=== PATIENT | female | born 1995 | race Caucasian/White ===

== ENCOUNTER 2016-10-24 23:41 | Emergency (ER) | payer OTHER ==
[~2016-10-24] VITALS: Ht 152.4 cm; Wt 65.7 kg
[~2016-10-24 23:41] MED LIST: FERR325T5; FOLI5CAP; LEVE500T26 PO; MEDR150I IM; Vit B; Vit B12
[2016-10-24 23:44] VITALS: TEMP 36.8; Ht 152.4 cm; Wt 65.7 kg
[2016-10-24] MEDS ORDERED: LORAZEPAM 2 MG/ML 1 ML VIAL ONE (23:57)
[2016-10-24] MEDS ORDERED: LORAZEPAM 2 MG/ML 1 ML VIAL IV STA (23:57)
[2016-10-25 00:01] VITALS: O2SAT 94
[2016-10-25] MEDS ORDERED: CYAN10005 PO (00:11)
[2016-10-25] MEDS ORDERED: MEDR1INJ5 IM (00:13)
[2016-10-25] MEDS ORDERED: LAMO150T32 PO (00:13)
[2016-10-25] MEDS ORDERED: SODIUM CHLORIDE 0.9% 1000ML 1,000 ML IV STA (00:17)
[2016-10-25 00:40] LABS: BASO % 0.3 %; BASO ABS # 0.03 K/uL (0-0.2); COMPLETE YES; EOS % 0.5 %; HEMATOCRIT 42.4 % (37-47); IG% 0.2 %; LYMPH % 10.1 %; LYMPH ABS # 1.16 K/uL (1.2-3.4); MEAN CORPUSCULAR HEMOGLOBIN 30.6 pg (25-34); MEAN CORPUSCULAR HGB CONC 33.3 g/dl (32-36); MEAN PLATELET VOLUME 11.2 fL (7.4-10.4); NEUT % 82.9 %; PLATELET COUNT 243 K/uL (130-400); RED BLOOD COUNT 4.61 M/uL (4.2-5.4); WHITE BLOOD COUNT 11.46 K/uL (4.8-10.8)
[2016-10-25 00:53] LABS: INR 1.1 (0.9-1.1); PARTIAL THROMBOPLASTIN RATIO 1.1
[2016-10-25 00:58] LABS: BUN/CREATININE RATIO 17.3 (10-20); CALCIUM 8.5 mg/dl (8.5-10.1); CREATININE 0.94 mg/dl (0.60-1.20); MAGNESIUM 2.2 mg/dl (1.8-2.4); POTASSIUM 3.3 mmol/L (3.5-5.1)
[2016-10-25 01:09] LABS: PHOSPHORUS 4.1 mg/dl (2.5-4.9); THYROID STIMULATING HORMONE 6.53 uIu/ml (0.300-4.500)
[2016-10-25 01:10] LABS: URINE APPEARANCE CLEAR (CLEAR); URINE BILIRUBIN NEG (NEG); URINE COLOR YELLOW; URINE EPITHELIAL CELL AUTO >30 /lpf (0-5); URINE NITRITE NEG (NEG); URINE PH 6.5 (4.5-7.5); URINE SPECIFIC GRAVITY 1.022 (1.000-1.030); UROBILINOGEN NEG (NEG); ZZUR CULT IF INDIC CLEAN CATCH YES
[2016-10-25] MEDS ORDERED: POTASSIUM CHLORIDE 10 MEQ TABCR PO STA (01:10)
[2016-10-25 01:13] LABS: MANUAL MICROSCOPIC REQUIRED? NO; REVIEW REQ? YES
[2016-10-25 01:33] LABS: PREG INTERNAL NEGATIVE QC NEG CLEAR BACKGROUND; PREG INTERNAL POSITIVE QC POS CONTROL LINE
--- NOTE | 2016-10-25 01:41 | EMERGENCY ROOM VISIT NOTE ---
History First contact with patient: 23:49 Chief Complaint: SEIZURE Stated Complaint: SEIZURE Nursing Triage Summary: refer to triage note History of Present Illness The patient is a 21 year old female who presents to the Emergency Room with complaints of possible seizure tonight. Patient has CP and a history of seizures. Patient has some contraction on her right side but is able to ambulate and closed herself. She is on Lamictal. Patient accidentally skipped her dose of Lamictal today. Last seizure was last year. Mother states that she seizes her right arm shakes. Occasionally she has a grand mal seizure. Patient denies chest pain, dyspnea, fever, chills, cough, congestion, abdominal pain or any other medical complaints. Mother states she tried diazepam with no success and called EMS. Mother states her seizure lasted for 50 minutes. Review of Systems See HPI for pertinent positives & negatives. A total of 10 systems reviewed and were otherwise negative. Past Medical/Surgical History Medical Problems: (1) Cerebral palsy (2) EPILEPSY UNSPEC W/O MENTION INTRACTABLE EPILEPSY (3) Seizure disorder Social History Smoking Status: Never Smoker Alcohol Use: none Drug Use: none Marital Status: single Housing Status: lives with family Occupation Status: disabled Current/Historical Medications Scheduled Cyanocobalamin (Vitamin B-12), 1,000 MCG PO DAILY Folic Acid (Folic Acid), 1 MG QD Lamotrigine (Lamictal), 150 MG PO BID Medroxyprogesterone Acetate (C (Medroxyprogesterone Aceta), 150 MG IM MONTHLY Physical Exam Vital Signs Date Time Temp Pulse Resp B/P (MAP) Pulse Ox O2 Delivery O2 Flow Rate FiO2 10/25/16 01:48 119 20 115/77 96 10/25/16 01:12 111 18 113/79 96 Room Air 10/25/16 00:01 94 Room Air 10/25/16 00:01 94 Room Air 10/24/16 23:49 136 10/24/16 23:44 36.8 135 27 142/93 94 Room Air Physical Exam VITALS: Vitals are noted on the nurse's note and reviewed by myself. Vital signs tachycardic GENERAL: Pleasant female anxious-appearing, in no acute distress, nondiaphoretic , well-developed well-nourished. SKIN: The skin was without rashes, erythema, edema, or bruising. There is no tenting of the skin. Capillary reflex less than 2 seconds. HEAD: Normocephalic atraumatic. EARS: External auditory canals clear, tympanic membranes pearly chávez without erythema or effusion bilaterally. EYES: Pupils equal round and reactive to light and accommodation. Conjunctivae without injection, sclerae without icterus. Extraocular movements intact. NOSE: Patent, turbinates without inflammation or discharge. MOUTH: Mucous membranes moist. Pharynx without erythema or exudate. Uvula midline. Airway patent. Tongue does not deviate. NECK: Supple without nuchal rigidity. No lymphadenopathy. No thyromegaly. Cervical spine is nontender. No JVD. HEART: Regular rate and rhythm without murmurs gallops or rubs. LUNGS: Clear to auscultation bilaterally without wheezes, rales or rhonchi. No dullness to percussion. No retractions or accessory muscle use. ABDOMEN: Positive bowel sounds x 4. Normal tympanic percussion. Soft, nontender, without masses or organomegaly. Henriquez sign negative. No guarding or rebound tenderness. MUSCULOSKELETAL: No muscle atrophy, erythema, or edema noted. Right arm contracted NEURO: Patient was alert and oriented to person place and time. Normal sensation to light and sharp touch. No focal neurological deficits. Medical Decision & Procedures Laboratory Results 10/25/16 00:30 Red Blood Count 4.61, Mean Corpuscular Volume 92.0, Mean Corpuscular Hemoglobin 30.6, Mean Corpuscular Hemoglobin Concent 33.3, Mean Platelet Volume 11.2, Neutrophils (%) (Auto) 82.9, Lymphocytes (%) (Auto) 10.1, Monocytes (%) (Auto) 6.0, Eosinophils (%) (Auto) 0.5, Basophils (%) (Auto) 0.3, Neutrophils # (Auto) 9.50, Lymphocytes # (Auto) 1.16, Monocytes # (Auto) 0.69, Eosinophils # (Auto) 0.06, Basophils # (Auto) 0.03 10/25/16 00:30 Test 10/25/16 00:30 10/25/16 00:40 White Blood Count 11.46 K/uL (4.8-10.8) Red Blood Count 4.61 M/uL (4.2-5.4) Hemoglobin 14.1 g/dL (12.0-16.0) Hematocrit 42.4 % (37-47) Mean Corpuscular Volume 92.0 fL (80-100) Mean Corpuscular Hemoglobin 30.6 pg (25-34) Mean Corpuscular Hemoglobin Concent 33.3 g/dl (32-36) Platelet Count 243 K/uL (130-400) Mean Platelet Volume 11.2 fL (7.4-10.4) Neutrophils (%) (Auto) 82.9 % Lymphocytes (%) (Auto) 10.1 % Monocytes (%) (Auto) 6.0 % Eosinophils (%) (Auto) 0.5 % Basophils (%) (Auto) 0.3 % Neutrophils # (Auto) 9.50 K/uL (1.4-6.5) Lymphocytes # (Auto) 1.16 K/uL (1.2-3.4) Monocytes # (Auto) 0.69 K/uL (0.11-0.59) Eosinophils # (Auto) 0.06 K/uL (0-0.5) Basophils # (Auto) 0.03 K/uL (0-0.2) RDW Standard Deviation 42.8 fL (36.4-46.3) RDW Coefficient of Variation 12.7 % (11.5-14.5) Immature Granulocyte % (Auto) 0.2 % Immature Granulocyte # (Auto) 0.02 K/uL (0.00-0.02) Prothrombin Time 12.0 SECONDS (9.0-12.0) Prothromb Time International Ratio 1.1 (0.9-1.1) Activated Partial Thromboplast Time 28.0 SECONDS (21.0-31.0) Partial Thromboplastin Ratio 1.1 Anion Gap 7.0 mmol/L (3-11) Est Creatinine Clear Calc Drug Dose 78.7 ml/min Estimated GFR () 99.1 Estimated GFR (Non- 85.5 BUN/Creatinine Ratio 17.3 (10-20) Calcium Level 8.5 mg/dl (8.5-10.1) Phosphorus Level 4.1 mg/dl (2.5-4.9) Magnesium Level 2.2 mg/dl (1.8-2.4) Thyroid Stimulating Hormone (TSH) 6.530 uIu/ml (0.300-4.500) Human Chorionic Gonadotropin, Qual NEG (NEG) Urine Color YELLOW Urine Appearance CLEAR (CLEAR) Urine pH 6.5 (4.5-7.5) Urine Specific [place] 1.022 (1.000-1.030) Urine Protein 2+ (NEG) Urine Glucose (UA) NEG (NEG) Urine Ketones NEG (NEG) Urine Occult Blood 2+ (NEG) Urine Nitrite NEG (NEG) Urine Bilirubin NEG (NEG) Urine Urobilinogen NEG (NEG) Urine Leukocyte Esterase NEG (NEG) Urine WBC (Auto) 5-10 /hpf (0-5) Urine RBC (Auto) 0-4 /hpf (0-4) Urine Hyaline Casts (Auto) 1-5 /lpf (0-5) Urine Epithelial Cells (Auto) >30 /lpf (0-5) Urine Bacteria (Auto) NEG (NEG) Urine Renal Epithelial Cells /lpf (0-5) Urine Yeast (Auto) PRESENT (NONE PRSENT) Medications Administered Medications (Trade) Dose Ordered Sig/Justus Route Start Time Stop Time Status Last Admin Dose Admin Lorazepam (Ativan Inj) 1 mg NOW STAT IV 10/24/16 23:57 10/24/16 23:59 DC 10/25/16 00:04 1 MG Sodium Chloride 1,000 ml @ 999 mls/hr Q1H1M STAT IV 10/25/16 00:17 10/25/16 01:17 DC 10/25/16 00:40 999 MLS/HR Potassium Chloride (Klor-Con M10) 20 meq NOW STAT PO 10/25/16 01:10 10/25/16 01:11 DC 10/25/16 01:21 20 MEQ Lamotrigine (Lamictal Tab) 100 mg NOW STAT PO 10/25/16 01:24 10/25/16 01:25 DC 10/25/16 01:48 100 MG ED Course Prior records/ancillary studies reviewed. Patient placed in seizure precautions immediately upon arrival. Nursing notes reviewed. Additional history obtained from family The patient's history was concerning for a possible seizure. Differential diagnosis: Etiologies such as infection, hypoglycemia, electrolyte abnormalities, cardiac sources, intracerebral event, trauma, toxicologic, neurologic, as well as others were entertained. Physical examination: As above. No signs of trauma. ER treatment provided: Ativan, IV fluids On reassessment the patient felt better. Diagnostics interpretation by me: ECG: Normal sinus, normal intervals, minimal ST depression in the lateral leads most likely rate dependent, rate of 132. Impression sinus tachycardia interpreted by myself The labs revealed Lamictal pending. Hypokalemia and this is replaced orally Consultation: A consultation was placed with the neurologist, Dr Hernández. The case was discussed and diagnostics were reviewed. He recommends one extra dose of Lamictal 100 mg, observation and discharged after an hour. The patient has a history of seizures and experienced another episode. No concerning physical findings or historical points were noted. Advanced diagnostics were deemed unnecessary. By the evaluation outlined above emergent etiologies such as infection, hypoglycemia, electrolyte abnormalities, cardiac sources, intracerebral event, toxicologic, neurologic,as well as others were deemed relatively unlikely. Patient was neurovascularly and neurologically intact. She is well-appearing. She forgot her dose of Lamictal. Neurology did not want to change any of her medications. She will follow-up with them. The pt informed about the findings as listed above. All questions were answered and pleased with the treatment. Return instructions were outlined and the patient was discharged in stable condition. Referral: The patient was referred back to their neurologist for follow-up in 2 to 3 days for a recheck of the current condition. Case reviewed with my attending. Medical Decision As above Medication Reconcilliation Current Medication List: was personally reviewed by me Blood Pressure Screening Patient's blood pressure: Normal blood pressure Impression Primary Impression: Seizure disorder Additional Impression: Hypokalemia Departure Information Dispostion Home / Self-Care Condition GOOD Referrals Brendan Sylvester M.D. (PCP) Patient Instructions My [facility] Additional Instructions Ibuprofen(Motrin, Advil) may be used for fever or pain. Use 600mg every six hours as needed. Take with food. Avoid using more than 2400mg in a 24 hour period. Do not use 2400mg per day for more than three consecutive days without physician direction. Prolonged inappropriate use can lead to stomach upset or ulcers. (AND/OR) Acetaminophen(Tylenol) may be used for fever or pain. Use 1000mg every six hours as needed. Avoid using more than 3000mg in a 24 hour period. Rest and drink plenty of fluids as tolerated. Continue current medications. Avoid strenuous activities and anything that worsens your pain. Resume normal activities once your symptoms resolve. Return to the ER immediately for worsening or persistent seizures, abdominal pain, vomiting, fevers, chest pains, difficulty breathing, worsening of your condition, or as needed. Follow up with your primary physician/seizures in 2-3 days for a recheck of your current condition. Problem Qualifiers
[2016-10-25 01:48] VITALS: BP 115/77; PULSE 119; O2SAT 96
== END 2016-10-25 01:53 | disposition home or self-care (01) ==
LOC: EDBD 23:41 → C.EDB 23:42
DX: G40.909 Epilepsy, unspecified, not intractable, without status epilepticus (principal); E87.6 Hypokalemia; G80.9 Cerebral palsy, unspecified; Z79.899 Other long term (current) drug therapy

== ENCOUNTER 2017-06-12 10:35 | Emergency (ER) | payer OTHER ==
[~2017-06-12] VITALS: Ht 157.5 cm; Wt 66.0 kg
[~2017-06-12 10:35] MED LIST changes: +CYAN10005 PO; -FERR325T5; +LAMO150T PO; -LEVE500T26 PO; -MEDR150I IM; +MEDR1INJ5 IM; -Vit B; -Vit B12
[2017-06-12 10:47] VITALS: TEMP 36.7; Ht 157.5 cm; Wt 66.0 kg
[2017-06-12] MEDS ORDERED: LORAZEPAM 2 MG/ML 1 ML VIAL IV STA (10:53)
[2017-06-12] MEDS ORDERED: SODIUM CHLORIDE 0.9% 1000ML 1,000 ML IV STA (10:53)
[2017-06-12 11:05] VITALS: O2SAT 98
--- NOTE | 2017-06-12 11:06 | EMERGENCY ROOM VISIT NOTE ---
History Report prepared by Aletha: Zoila Ordaz Under the Supervision of: Dr. Alok Mahajan M.D. First contact with patient: 10:47 Chief Complaint: SEIZURE Stated Complaint: SEIZURE History of Present Illness The patient is a 22 year old female who presents to the Emergency Room with complaints of an episode of a seizure occurring [employer]. The patient was at a day program at a local [employer] when she had a witnessed seizure. EMS was called and reports a full tonic/clonic seizure. The patient was confused afterwards. She has a history of seizures and takes medications for her seizures. She was brought to the ED by ambulance. Mother states that the patient is usually a lot more talkative. Her last seizure was in the summer. She follows up with Dr. Hernández of neurology. The HPI is limited secondary to the patient's mental status. Source of History: patient, parent (mother), EMS History Limited By: other (mental status) Onset: [employer] Position: other (global) Quality: other (seizure) Timing: worsening (episode) Review of Systems ROS is limited secondary to the patient's mental status. Past Medical & Surgical Medical Problems: (1) Cerebral palsy (2) EPILEPSY UNSPEC W/O MENTION INTRACTABLE EPILEPSY (3) Seizure disorder Family History No pertinent history stated. Social History Smoking Status: Never Smoker Alcohol Use: none Drug Use: none Marital Status: single Housing Status: lives with family Occupation Status: disabled Current/Historical Medications Scheduled Cyanocobalamin (Vitamin B-12), 1,000 MCG PO DAILY Folic Acid (Folic Acid), 1 MG QD Lamotrigine (Lamictal), 150 MG PO BID Medroxyprogesterone Acetate (C (Medroxyprogesterone Aceta), 150 MG IM MONTHLY Allergies Coded Allergies: No Known Allergies (Unverified , 10/25/16) Physical Exam Vital Signs Date Time Temp Pulse Resp B/P (MAP) Pulse Ox O2 Delivery O2 Flow Rate FiO2 06/12/17 12:25 118 22 117/83 100 06/12/17 11:05 98 Room Air 06/12/17 10:52 123 06/12/17 10:47 36.7 136 20 180/114 95 Room Air Physical Exam GENERAL: Awake, pt appears confused, in no acute distress HENT: Normocephalic, atraumatic. Oropharynx unremarkable. EYES: Normal conjunctiva. Sclera non-icteric. NECK: Supple. No nuchal rigidity. FROM. No JVD. RESPIRATORY: Clear to auscultation. CARDIAC: Regular rate, normal rhythm. Extremities warm and well perfused. Pulses equal. ABDOMEN: Soft, non-distended. No tenderness to palpation. No rebound or guarding. No masses. RECTAL: Deferred. MUSCULOSKELETAL: Chest examination reveals no tenderness. The back is symmetrical on inspection without obvious abnormality. There is no CVA tenderness to palpation. No joint edema. LOWER EXTREMITIES: Calves are equal size bilaterally and non-tender. No edema. No discoloration. NEURO: Patient appears confused on exam, rapid movement of the right arm. Answers simple questions. SKIN: No rash or jaundice noted. Medical Decision & Procedures Laboratory Results 06/12/17 11:08 Red Blood Count 4.70, Mean Corpuscular Volume 90.9, Mean Corpuscular Hemoglobin 31.5, Mean Corpuscular Hemoglobin Concent 34.7, Mean Platelet Volume 10.8, Neutrophils (%) (Auto) 80.0, Lymphocytes (%) (Auto) 11.7, Monocytes (%) (Auto) 7.7, Eosinophils (%) (Auto) 0.2, Basophils (%) (Auto) 0.2, Neutrophils # (Auto) 6.82, Lymphocytes # (Auto) 1.00, Monocytes # (Auto) 0.66, Eosinophils # (Auto) 0.02, Basophils # (Auto) 0.02 06/12/17 11:08 Test 06/12/17 11:01 06/12/17 11:08 06/12/17 11:27 Bedside Glucose 118 mg/dl (70-90) White Blood Count 8.54 K/uL (4.8-10.8) Red Blood Count 4.70 M/uL (4.2-5.4) Hemoglobin 14.8 g/dL (12.0-16.0) Hematocrit 42.7 % (37-47) Mean Corpuscular Volume 90.9 fL (80-100) Mean Corpuscular Hemoglobin 31.5 pg (25-34) Mean Corpuscular Hemoglobin Concent 34.7 g/dl (32-36) Platelet Count 234 K/uL (130-400) Mean Platelet Volume 10.8 fL (7.4-10.4) Neutrophils (%) (Auto) 80.0 % Lymphocytes (%) (Auto) 11.7 % Monocytes (%) (Auto) 7.7 % Eosinophils (%) (Auto) 0.2 % Basophils (%) (Auto) 0.2 % Neutrophils # (Auto) 6.82 K/uL (1.4-6.5) Lymphocytes # (Auto) 1.00 K/uL (1.2-3.4) Monocytes # (Auto) 0.66 K/uL (0.11-0.59) Eosinophils # (Auto) 0.02 K/uL (0-0.5) Basophils # (Auto) 0.02 K/uL (0-0.2) RDW Standard Deviation 42.3 fL (36.4-46.3) RDW Coefficient of Variation 12.7 % (11.5-14.5) Immature Granulocyte % (Auto) 0.2 % Immature Granulocyte # (Auto) 0.02 K/uL (0.00-0.02) Prothrombin Time 11.2 SECONDS (9.0-12.0) Prothromb Time International Ratio 1.1 (0.9-1.1) Activated Partial Thromboplast Time 25.2 SECONDS (21.0-31.0) Partial Thromboplastin Ratio 1.0 Anion Gap 5.0 mmol/L (3-11) Est Creatinine Clear Calc Drug Dose 103.1 ml/min Estimated GFR () 129.3 Estimated GFR (Non- 111.6 BUN/Creatinine Ratio 16.6 (10-20) Calcium Level 8.7 mg/dl (8.5-10.1) Phosphorus Level 3.1 mg/dl (2.5-4.9) Magnesium Level 2.2 mg/dl (1.8-2.4) Thyroid Stimulating Hormone (TSH) 7.620 uIu/ml (0.300-4.500) Urine Color YELLOW Urine Appearance CLEAR (CLEAR) Urine pH 6.0 (4.5-7.5) Urine Specific [place] 1.025 (1.000-1.030) Urine Protein 2+ (NEG) Urine Glucose (UA) NEG (NEG) Urine Ketones NEG (NEG) Urine Occult Blood 1+ (NEG) Urine Nitrite NEG (NEG) Urine Bilirubin NEG (NEG) Urine Urobilinogen NEG (NEG) Urine Leukocyte Esterase NEG (NEG) Urine RBC 0-4 /hpf (0-4) Urine WBC 1-5 /hpf (0-5) Urine Epithelial Cells 5-10 /lpf (0-5) Urine Bacteria NEG (NEG) Urine Mucus PRESENT (NONE PRSENT) Labs reviewed by ED physician. Medications Administered Medications (Trade) Dose Ordered Sig/Justus Route Start Time Stop Time Status Last Admin Dose Admin Lorazepam (Ativan Inj) 1 mg NOW STAT IV 06/12/17 10:53 06/12/17 10:57 DC 06/12/17 11:15 1 MG Sodium Chloride 1,000 ml @ 999 mls/hr Q1H1M STAT IV 06/12/17 10:53 06/12/17 11:53 DC 06/12/17 11:15 999 MLS/HR ED Course 1047: Past medical records reviewed. The patient was evaluated in room B2. A complete history and physical examination was performed. 1053: NSS 1000 mg @ 999 mls/hr IV, Ativan 1 mg IV 1220: I reassessed the patient at this time. She is feeling better and resting comfortably. I discussed the results and treatment plan with the patient's mother. I answered all pertaining questions that she had. She expressed understanding and verbalized agreement. The patient will be discharged home. Medical Decision Differential diagnosis: Etiologies such as infection, hypoglycemia, electrolyte abnormalities, cardiac sources, intracerebral event, trauma, toxicologic, neurologic, as well as others were entertained. This is a 22-year-old female who presents the emergency department with a history of seizures. Patient had a seizure at her camp today. Mother arrived and states that the patient has not missed any of her medication doses. She was given 1 mg of Ativan here in the emergency department. Repeat examination revealed the patient to be at her baseline. The patient's seizure medication level was obtained however it will not be back for several days. I will note that the patient has no evidence of meningitis or encephalitis on examination. I feel the patient is well enough to be discharged home for follow-up with her neurologist. Patient was in agreement with the treatment plan. Medication Reconcilliation Current Medication List: was personally reviewed by me Blood Pressure Screening Patient's blood pressure: Normal blood pressure Impression Primary Impression: Seizure Scribe Attestation The scribe's documentation has been prepared under my direction and personally reviewed by me in its entirety. I confirm that the note above accurately reflects all work, treatment, procedures, and medical decision making performed by me. Departure Information Dispostion Home / Self-Care Referrals Brendan Sylvester M.D. (PCP) Armando Hernández M.D. (MEDICINE) Forms HOME CARE DOCUMENTATION FORM, IMPORTANT VISIT INFORMATION Patient Instructions ED Seizure Recurrent, My [facility] Additional Instructions Follow up with DR Hernández's office You have been examined and treated today on an emergency basis only. This is not a substitute for, or an effort to provide, complete comprehensive medical care. It is impossible to recognize and treat all injuries or illnesses in a single emergency department visit. It is therefore important that you follow up closely with Dr Sylvester. Call as soon as possible for an appointment. Thank you for your time and consideration. I look forward to speaking with you again soon. Please don't hesitate to call us if you have any questions.
[2017-06-12 11:26] LABS: BASO % 0.2 %; BASO ABS # 0.02 K/uL (0-0.2); EOS % 0.2 %; EOS ABS # 0.02 K/uL (0-0.5); HEMATOCRIT 42.7 % (37-47); HEMOGLOBIN 14.8 g/dL (12.0-16.0); IG# 0.02 K/uL (0.00-0.02); LYMPH % 11.7 %; MEAN CELL VOLUME 90.9 fL (80-100); MEAN CORPUSCULAR HEMOGLOBIN 31.5 pg (25-34); MEAN CORPUSCULAR HGB CONC 34.7 g/dl (32-36); MEAN PLATELET VOLUME 10.8 fL (7.4-10.4); MONO % 7.7 %; MONO ABS # 0.66 K/uL (0.11-0.59); NEUT ABS # 6.82 K/uL (1.4-6.5); PLATELET COUNT 234 K/uL (130-400); RED CELL DISTRIBUTION WIDTH CV 12.7 % (11.5-14.5); RED CELL DISTRIBUTION WIDTH SD 42.3 fL (36.4-46.3); WHITE BLOOD COUNT 8.54 K/uL (4.8-10.8)
[2017-06-12 11:36] LABS: INR 1.1 (0.9-1.1); PTT PATIENT 25.2 SECONDS (21.0-31.0)
[2017-06-12 11:56] LABS: CALCIUM 8.7 mg/dl (8.5-10.1); CREATININE 0.75 mg/dl (0.60-1.20); POTASSIUM 3.3 mmol/L (3.5-5.1)
[2017-06-12 12:06] LABS: PHOSPHORUS 3.1 mg/dl (2.5-4.9)
[2017-06-12 12:25] VITALS: BP 117/83; PULSE 118; O2SAT 100
== END 2017-06-12 12:56 | disposition home or self-care (01) ==
LOC: EDBD 10:35 → C.EDB 10:36
DX: G40.909 Epilepsy, unspecified, not intractable, without status epilepticus (principal); G80.9 Cerebral palsy, unspecified; Z79.899 Other long term (current) drug therapy

== ENCOUNTER 2017-10-30 03:05 | Emergency (ER) | payer OTHER ==
[~2017-10-30] VITALS: Ht 160 cm; Wt 61.7 kg
[2017-10-30 03:15] VITALS: TEMP 36.9; Ht 160 cm; Wt 61.7 kg
--- NOTE | 2017-10-30 03:17 | EMERGENCY ROOM VISIT NOTE ---
History First contact with patient: 03:08 Chief Complaint: SEIZURE Stated Complaint: SEIZURE History of Present Illness The patient is a 22 year old female who presents to the Emergency Room for evaluation following seizure. Info per pt, ems and family. Patient with long seizure history. Had another seizure this evening. Started with shaking of arms then had brief few seconds of full body seizure. By time EMS arrived no further symptoms and she was not post-ictal. Patient denies symptoms but admits headache. Denies chest pain, shortness of breath, abdominal pain, neck pain, eye pain, nor otehr symptoms. Unknown length of seizure. No reported trauma/injuries. EMS notes patient was covered in cat hair/urine and entire house was dirty. No medications prior to arrival. Reportedly has been taking all medications. Patient with long history of seizure disorder and periodic ED visits for these. Patient has been acting herself. She is chronically on Lamictal for seizures. Review of Systems See HPI for pertinent positives & negatives. A total of 10 systems reviewed and were otherwise negative. Past Medical/Surgical History Medical Problems: (1) Cerebral palsy (2) EPILEPSY UNSPEC W/O MENTION INTRACTABLE EPILEPSY (3) Seizure disorder Social History Smoking Status: Never Smoker Alcohol Use: none Drug Use: none Marital Status: single Housing Status: lives with family Occupation Status: disabled Current/Historical Medications Scheduled Cyanocobalamin (Vitamin B-12), 1,000 MCG PO DAILY Folic Acid (Folic Acid), 1 MG QD Lamotrigine (Lamictal), 150 MG PO BID Medroxyprogesterone Acetate (C (Medroxyprogesterone Aceta), 150 MG IM MONTHLY Physical Exam Vital Signs Date Time Temp Pulse Resp B/P (MAP) Pulse Ox O2 Delivery O2 Flow Rate FiO2 10/30/17 03:56 95 15 114/78 98 Room Air 10/30/17 03:24 117 10/30/17 03:15 36.9 126 18 91/60 94 Room Air 10/30/17 03:13 Room Air Physical Exam GENERAL: Patient is well appearing and in no acute distress. EYES: No scleral icterus, unremarkable pupils. ENT: Mucous membranes moist, no nasal congestion. NECK: No masses appreciated, no meningismus, trachea is midline. RESPIRATORY: No dyspnea. Clear to auscultation and equal bilaterally. No wheeze , no rhonchi. CARDIOVASCULAR: Regular rate and rhythm. No murmurs, rubs, gallops appreciated. GASTROINTESTINAL: Abdomen soft, nontender, no peritonitis. Bowel sounds positive. No masses appreciated. BACK: No midline tenderness, no CVA tenderness EXTREMITIES: Normal motion all extremities, no cyanosis, no edema. Poor muscle tone of lower extremities. NEUROLOGIC: Alert and oriented, no acute motor or sensory deficits, no focal weakness, cranial nerves grossly intact. SKIN: No rash, no jaundice, no diaphoresis. Medical Decision & Procedures Medications Administered Medications (Trade) Dose Ordered Sig/Jutsus Route Start Time Stop Time Status Last Admin Dose Admin Lorazepam (Ativan Tab) 0.5 mg NOW STAT SL 10/30/17 03:22 10/30/17 03:23 DC 10/30/17 03:28 0.5 MG Medical Decision 22 yr old female with well documented seizure disorder. She had brief seizure this evening. Given small dose Ativan to try preventing further this evening. She looks well is in no distress. In no way has meningitis and I do not feel this is ich, dissection, thrombosis nor other emergent intracranial issue. She is out of ativan at home for these breakthrough seizures thus sent with 1 tablets to go. Family and patient very much wish to go home and as she has been doing well for over an hour this seems reasonable. Reviewed symptoms requiring RTED/911. Impression Primary Impression: Seizure Departure Information Dispostion Home / Self-Care Condition GOOD Referrals Brendan Sylvester M.D. (PCP) Patient Instructions ED Seizure Recurrent, My [facility] Additional Instructions If shaking or evidence of seizure begins give 1 Tablet Ativan by mouth. This can dissolve under tongue. If prolonged seizure or other concerns, call 911.
[2017-10-30] MEDS ORDERED: LORAZEPAM 0.5 MG TAB SL STA (03:22)
[2017-10-30 03:56] VITALS: BP 114/78; PULSE 95; O2SAT 98
[2017-10-30] MEDS ORDERED: ATIVAN 1MG HOMEPACK PO ONE (04:00)
== END 2017-10-30 04:04 | disposition home or self-care (01) ==
LOC: EDBD 03:05 → C.EDB 03:07
DX: G40.909 Epilepsy, unspecified, not intractable, without status epilepticus (principal)